=== PATIENT | female | born 1975 | race African-American/Black ===

== ENCOUNTER 2018-01-16 04:38 | Emergency (ER) | payer OTHER ==
[2018-01-16 05:13] VITALS: TEMP 98.4; BMI 37.2
[2018-01-16] MEDS ORDERED: IBUPROFEN 400 MG TABLET (FP) PO ONE ×2 (05:23→05:24)
--- NOTE | 2018-01-16 05:42 | PDOC ---
History of Present Illness - General Chief Complaint: Pain, Acute Stated Complaint: R ARM INJURY Time Seen by Provider: 01/16/18 04:53 History Source: Patient Exam Limitations: No Limitations - History of Present Illness Initial Comments: 01/16/18 05:31 42 yo female no significant pmh presents to the ED for right forearm pain after a door closed on it. Patient states she works at [employer] and a resident closed the door on her multiple times around 4 30 this am. Patient used ice to reduce swelling. Admits to dulled sensation in right hand compared to the left but denies weakness. No break in skin or bleeding at the site noted Past History - Past Medical History Allergies/Adverse Reactions: Allergies Allergy/AdvReac Type Severity Reaction Status Date / Time No Known Allergies Allergy Verified 01/16/18 05:08 Home Medications: Ambulatory Orders NK [No Known Home Medication] 01/16/18 - Suicide/Smoking/Psychosocial Hx Smoking History: Never smoked Have you smoked in the past 12 months: No Information on smoking cessation initiated: No Hx Alcohol Use: No Drug/Substance Use Hx: No Review of Systems - Review of Systems Cardiac (ROS): No: Chest Pain Neurological: Yes: Numbness (right hand), Tingling (right hand). No: Weakness *Physical Exam - Vital Signs Last Vital Signs Temp Pulse Resp BP Pulse Ox 98.4 F 82 20 137/89 100 01/16/18 04:39 01/16/18 04:39 01/16/18 04:39 01/16/18 04:39 01/16/18 04:39 - Physical Exam General Appearance: Yes: Nourished, Appropriately Dressed, Apparent Distress ( holding right wrist in extension) Respiratory/Chest: positive: Lungs Clear, Normal Breath Sounds Cardiovascular: positive: Regular Rhythm, Regular Rate, S1, S2. negative: Edema , JVD, Murmur Comments:: 01/16/18 06:22 equal radial pulses bilaterally Gastrointestinal/Abdominal: positive: Normal Bowel Sounds Extremity: positive: Normal Capillary Refill, Swelling (right distal forearm). negative: Normal Range of Motion (ROM decreased in all planes right wrist) Integumentary: positive: Bruising (right distal forearm) Neurologic: positive: Fully Oriented, Alert ED Treatment Course - Medications Given in the ED: ED Medications Discontinued Medications Generic Name Dose Route Start Last Admin Trade Name Freq PRN Reason Stop Dose Admin Ibuprofen 800 mg 01/16/18 05:23 01/16/18 05:25 Motrin - PO 01/16/18 05:24 800 mg ONCE ONE Administration Medical Decision Making - Medical Decision Making 01/16/18 06:26 42 yo female presents for injury to right distal forearm after door closed on it. Neurovascularly intact. Strength limited due to pain, sensation dulled on right when compared to left Right hand wrist and forearm x ray ordered Motrin 800mg given and pain controlled. Will re assess after x ray
--- NOTE | 2018-01-16 07:14 | PDOC ---
Attending Attestation - Resident Resident Name: Cam Baires - ED Attending Attestation I have performed the following: I have examined & evaluated the patient, The case was reviewed & discussed with the resident, I agree w/resident's findings & plan, Exceptions are as noted - HPI HPI: 01/16/18 07:12 42-year-old female here today complaining of right wrist injury patient states she works at [employer] since [place] her arm was shut in a door 3 separate times states it was not installed actually did it was actually trying to help her get door open denies any numbness or tingling has severe pain over the distal right forearm on the radial side no ecchymosis no swelling no elbow or shoulder injuries did not take anything for her pain it happened right prior to arrival no previous wrist surgeries on that arm - Physicial Exam PE: 01/16/18 07:12 Awake alert no acute distress lungs are clear bilaterally heart is regular without any murmurs rubs or gallops extremity exam reveals tenderness on the right distal forearm over the radius there is no associated ecchymosis or swelling full range of motion at the wrist elbow and shoulder 2+ and and median pulses distally neurovascularly intact - Medical Decision Making 01/16/18 07:13 Status post injury to the right wrist differential includes fracture versus contusion plan x-ray of the right forearm and wrist pain control if negative will DC home with or for follow-up only as necessary X-rays are negative for any acute fracture discharge speech Motrin 600 mg as needed every 8 hours and follow-up with orthopedics only as needed
[2018-01-16 07:36] VITALS: BP 139/84; PULSE 76
== END 2018-01-16 07:39 | disposition home or self-care (01) ==
LOC: JER 04:38
DX: M79.631 Pain in right forearm (principal); Y04.0XXA Assault by unarmed brawl or fight, initial encounter; Y93.89 Activity, other specified; Y92.238 Other place in hospital as the place of occurrence of the external cause; Y99.0 Civilian activity done for income or pay
CPT/HCPCS: 73090-TC-RT-FY; 73110-TC-RT-FY; 73130-TC-RT-FY; 84703; 99283-25

== ENCOUNTER 2022-03-18 11:00 | Emergency (ER) | payer OTHER ==
[2022-03-18 11:11] VITALS: BP 159/81; PULSE 83; RESP 18; TEMP 98.8; BMI 37.2
[2022-03-18] MEDS ORDERED: BACITRACIN 15 GM TUBE TOPICAL OINTMENT ONE (11:36)
[2022-03-18] MEDS ORDERED: DIPHTH,PERTUSS(ACELL),TET 0.5 ML DISP.SYRIN IM ONE ×2 (11:45→11:46)
== END 2022-03-18 12:17 | disposition home or self-care (01) ==
LOC: JERFT 11:00
PROC: 3E0234Z Introduction of Serum, Toxoid and Vaccine into Muscle, Percutaneous Approach (ICD-10-PCS; principal; 2022-03-18)
DX: S10.93XA Contusion of unspecified part of neck, initial encounter (principal)
CPT/HCPCS: 90715; 99283-25